=== PATIENT | female | born 1950 | race Caucasian/White ===

== ENCOUNTER 2021-05-20 06:21 | Day surgery (SDC) | payer MEDICARE, OTHER ==
[2021-05-20] VITALS (7 sets, daily range): BP systolic 110–171; BP diastolic 58–80; PULSE 60–72; TEMP 97.6
[~2021-05-20] VITALS: Wt 109.8 kg
[2021-05-20 08:50] LABS: BASO # 0.1 K/mm3 (0.0-0.2); BASO % 0.8 % (0.0-2.0); EOS # 0.2 K/mm3 (0.0-0.7); EOS % 2.2 % (0.0-4.0); GRAN # 6.8 K/mm3 (1.4-6.5); GRAN % 76.4 % (42.2-75.2); HEMOGLOBIN 11.3 g/dl (12.5-16.0); LYMPH % 11.8 % (20.0-51.0); MEAN CELL VOLUME 87 fl (80.0-100.0); MEAN CORPUSCULAR HEMOGLOBIN 27 pg (27-31); MEAN CORPUSCULAR HGB CONC 31 g/dl (33.0-37.0); MEAN PLATELET VOLUME 11.1 fl (7.4-10.4); MONO # 0.8 K/mm3 (0.1-0.6); MONO % 8.5 % (1.7-9.3); PLATELET COUNT 136 K/mm3 (130-400); REDCELL DISTRIBUTION WIDTH-CV 17.2 % (11.5-14.5)
[2021-05-20 08:51] LABS: HEMATOCRIT 36.5 % (37.0-47.0)
[2021-05-20] MEDS ORDERED: ZESTRIL 10MG10 MG PO (08:51)
[2021-05-20] MEDS ORDERED: ZEBETA10 MG PO (08:52)
[2021-05-20] MEDS ORDERED: BUMEX 1MG TA1 MG/TA1 PO (08:52)
[2021-05-20] MEDS ORDERED: PACERONE200 MG PO (08:53)
[2021-05-20] MEDS ORDERED: COUMADIN 5MG5 MG/TAB PO (08:54)
[2021-05-20] MEDS ORDERED: COUMADIN 22.5 MG/TAB PO (08:55)
[2021-05-20] MEDS ORDERED: LIPITOR20 MG PO (08:55)
[2021-05-20] MEDS ORDERED: BASAGLAR K100 UNIT/1 SQ (08:56)
[2021-05-20] MEDS ORDERED: VITAMIN C500 MG PO (08:56)
[2021-05-20] MEDS ORDERED: NOVOLOG 100U100 U/M1 SQ (08:57)
[2021-05-20 09:00] LABS: PARTIAL THROMBOPLASTIN TIME 49.5 SECONDS (26.0-37.0)
[2021-05-20 09:06] LABS: CALCIUM 8.9 mg/dL (8.4-10.2); CREATININE, serum 1.76 mg/dL (0.57-1.11); MAGNESIUM 1.8 mg/dL (1.6-2.6); POTASSIUM 4.3 mmol/L (3.5-4.5)
[2021-05-20 09:13] LABS: INR 4.9 (0.8-3.0)
[2021-05-20 09:20] LABS: PROTHROMBIN TIME 54.8 SECONDS (9.7-12.8)
[2021-05-20 09:27] LABS: THYROID STIMULATING HORMONE 2.701 uIU/mL (0.350-4.940)
--- NOTE | 2021-05-20 11:20 | NUR ---
Discharge instructions given to pt.Pt verbalizes understanding.INT removed,catheter tip intact.Pt escorted out via wheelchair by this nurse.
== END 2021-05-20 12:37 ==
LOC: COL.CAR 06:21
PROVIDERS: Internal Medicine Cardiovascular Disease
DX: I48.91 Unspecified atrial fibrillation (principal); E78.5 Hyperlipidemia, unspecified; I10 Essential (primary) hypertension; I63.9 Cerebral infarction, unspecified; K58.9 Irritable bowel syndrome, unspecified; E11.9 Type 2 diabetes mellitus without complications; Z95.2 Presence of prosthetic heart valve; Z79.899 Other long term (current) drug therapy; Z79.4 Long term (current) use of insulin
CPT/HCPCS: J0330; J2704; J7120

== ENCOUNTER 2024-01-02 07:47 | Outpatient (CLI) | payer MEDICARE, OTHER ==
[~2024-01-02] VITALS: Ht 160 cm; Wt 97.8 kg
[~2024-01-02 07:47] MED LIST: BASAGLAR K100 UNIT/1 SQ; BUMEX2 MG PO; COUMADIN 1MG1 MG/TAB PO; COUMADIN 22.5 MG/TAB PO; LIPITOR20 MG PO; NOVOLOG 100U100 U/M1 SQ; PACERONE200 MG PO; VITAMIN C500 MG PO; ZEBETA10 MG PO; ZESTRIL2.5 MG PO
[2024-01-02 08:39] VITALS: BP 116/60; PULSE 113; TEMP 98
[2024-01-02 09:05] LABS: INR 1.9 (0.8-3.0)
[2024-01-02] MEDS ORDERED: CALCIUM 600600 MG PO (09:38)
[2024-01-02] MEDS ORDERED: CALCITRIOL PO (09:39)
[2024-01-02] MEDS ORDERED: ZAROXOLYN 2.52.5 MG PO (09:42)
[2024-01-02] MEDS ORDERED: JARDIANCE10 (09:42)
[2024-01-02] MEDS ORDERED: PRIL40 PO (09:43)
[2024-01-02] MEDS ORDERED: K-DUR20 MEQ PO (09:44)
[2024-01-02] MEDS ORDERED: ceFAZolin 2 G in Water For Injection,Sterile 20 ML IV SCH (10:00)
[2024-01-02] MEDS ORDERED: Midazolam 2 MG/2 ML VIAL IV SCH (10:38)
[2024-01-02] MEDS ORDERED: fentaNYL 50 MCG/ML 2 ML VIAL IV SCH (10:39)
[2024-01-02] MEDS ORDERED: Lidocaine 2% w EPI (1:100,000) 20 ML Multi-Dose VIAL IJ SCH (10:41)
[2024-01-02] MEDS ORDERED: Heparin 1,000 UNITS/ML 10 ML Multi-Dose VIAL IV SCH ×2 (10:42→10:45)
[2024-01-02 11:06] VITALS: BP 101/51; PULSE 110
--- NOTE | 2024-01-02 11:12 | NUR ---
Salma transferred to express unit after TDC insertion with Rand. BS report and handoff of care to Steff YOON
--- NOTE | 2024-01-02 11:13 | NUR ---
Please see merge document in paper chart for record of TDC insertion with DR. Perea.
[2024-01-02 11:15] VITALS: BP 100/51; PULSE 111
[2024-01-02 11:30] VITALS: BP 112/61; PULSE 109
[2024-01-02 11:45] VITALS: BP 91/53; PULSE 110
[2024-01-02 12:15] VITALS: BP 99/55; PULSE 108
--- NOTE | 2024-01-02 12:41 | NUR ---
Pt ambulated with a steady gait to EU10, accompanied by son. The pt was scheduled for a tunnel dialysis cath. IV started, labs drawn. Meds and HX reviewed with the pt. Consent for the procedure signed. Post procedure the pt came back to EU10. Some drainage present on dressing at time of arrival. Offered the pt something to eat and drink. Pt accepted some ice chips, but declined anything to eat. Pt was bedrest for 1 hr. Once the bedrest/recovery was finished discharge education and information discussed with the pt. No questions at the time. The pt exited the unit by christy, accompanied by this nurse to sons car.
== END 2024-01-02 12:39 | disposition home or self-care (01) ==
LOC: COL.CAR 07:47
PROVIDERS: Radiology Diagnostic Radiology
DX: N19 Unspecified kidney failure (principal)
CPT/HCPCS: J0688; J1644; J2250; J3010